=== PATIENT | female | born 1975 | race Caucasian/White ===

== ENCOUNTER 2020-02-01 06:45 | Outpatient (CLI) | payer OTHER, SELFPAY ==
--- NOTE | 2020-02-01 06:59 | USCV_ITS ---
Soniya Zhou Age: 44 Gender: F : 1975 Exam Date: 02/01/2020 07:07 Ordering Phys: Meredith MorganP SALES MGR Technologist: Geovanna Morales [place] [facility] [place]ication: edema HISTORY: Lower extremity edema. PROCEDURES: Venous duplex imaging was performed in bilateral lower extremities. Bilaterally, the common femoral, superficial femoral, profunda femoral, popliteal, posterior tibial, greater saphenous veins, and the peroneal trunk were identified and interrogated in the standard fashion. FINDINGS: Normal 2-D Doppler and augmentation and compressibility throughout the lower extremity venous structures. Additional imaging through the proximal calf veins also reveals no thrombus. Limited evaluation of the greater saphenous vein is patent with no thrombus. CONCLUSIONS No DVT bilateral lower extremities. Dr. Estella Turcios DO (Electronically Signed) Final Date: 01 February 2020 13:48 S
== END 2020-02-01 06:46 | disposition home or self-care (01) ==
PROVIDERS: PCP Nurse Practitioner Family; Visit Provider Nurse Practitioner Family
DX: R60.0 Localized edema (principal)
CPT/HCPCS: 93970

== ENCOUNTER 2020-06-14 15:45 | Outpatient (CLI) | payer OTHER, SELFPAY ==
[2020-06-14 17:41] LABS: Troponin T (5th) Once 8 ng/L (0-10)
[2020-06-14 18:00] LABS: NT Pro B Type Natriuretic Pept 339 pg/mL (0-125)
[2020-06-14 18:19] LABS: C Reactive Protein 14.5 mg/L (0.0-4.9)
== END 2020-06-14 15:46 | disposition home or self-care (01) ==
LOC: LAB 15:47
PROVIDERS: PCP Nurse Practitioner Family; Visit Provider Family Medicine
DX: R06.00 Dyspnea, unspecified (principal)
CPT/HCPCS: 83880; 84484; 86140

== ENCOUNTER → 2021-03-05 14:59 | Outpatient (BNVA) | payer OTHER, SELFPAY | PROVIDERS: PCP Nurse Practitioner Family; Visit Provider Nurse Practitioner Family | DX: Z20.822 Contact with and (suspected) exposure to COVID-19 (principal) | CPT/HCPCS: 87635 ==

== ENCOUNTER 2021-07-22 11:34 | Outpatient (CLI) | payer OTHER, SELFPAY ==
--- NOTE | 2021-07-22 11:51 | MM_ITS ---
WS: [id number] BILATERAL DIGITAL SCREENING MAMMOGRAPHY WITH CAD CLINICAL INFORMATION: SCREENING HISTORY: Screening mammogram. Bilateral breast soreness COMPARISON: TECHNIQUE: Bilateral CC and MLO views. FINDINGS: The breasts are composed of heterogeneous fibroglandular density tissue, which can limit the detectio n of small underlying mass lesions. No suspicious mass, asymmetry, calcifications, or architectural d istortion. No evidence of malignancy. MM/[id number] IMPRESSION: BI-RADS: 1-Negative FOLLOW UP: 1 Year Follow-up Recommend return to annual screening mammography.
== END 2021-07-22 11:35 | disposition home or self-care (01) ==
LOC: RADSHAW 11:41
PROVIDERS: PCP Nurse Practitioner Family; Visit Provider Nurse Practitioner Family
DX: Z12.31 Encounter for screening mammogram for malignant neoplasm of breast (principal)
CPT/HCPCS: 77067

== ENCOUNTER 2022-09-11 08:17 | Outpatient (CLI) | payer OTHER, SELFPAY ==
--- NOTE | 2022-09-11 08:26 | MM_ITS ---
WS: [id number] Bilateral screening 3D tomosynthesis digital mammogram, 09/11/2022 Clinical Data: SCREENING Comparison: 07/22/2021, 04/14/2019, 06/04/2017, 11/12/2015, 11/09/2014. Findings: The breast parenchymal pattern shows heterogeneous density. No spiculated masses or clustered calcifi cations are seen. There are no secondary signs of carcinoma. There are mole markers on both breasts. There are lymph nodes in both axilla. MM/[id number] Impression: 1. Negative bilateral mammogram unchanged. 2. Recommend annual screening mammograms. BIRADS: 1-Negative FOLLOW UP: 1 Year Follow-up The CAD finished cloth checker was used.
== END 2022-09-11 08:18 | disposition home or self-care (01) ==
LOC: RAD 08:20
PROVIDERS: PCP Nurse Practitioner Family; Visit Provider Nurse Practitioner Family
DX: Z12.31 Encounter for screening mammogram for malignant neoplasm of breast (principal)
CPT/HCPCS: 77063; 77067

== ENCOUNTER 2023-09-29 15:26 | Outpatient (CLI) | payer OTHER, SELFPAY ==
--- NOTE | 2023-09-29 15:34 | XRR_ITS ---
PROCEDURE INFORMATION: Exam: XR Chest Exam date and time: 09/29/2023 3:44 PM Age: 48 years old Clinical indication: Other: Localized edema TECHNIQUE: Imaging protocol: Radiologic exam of the chest. Views: 2 views. COMPARISON: CR XR chest 2V* [id number] 06/14/2020 2:39 PM FINDINGS: Lungs: No focal consolidation. Pleural spaces: No pleural effusion. No pneumothorax. Heart/Mediastinum: No cardiomegaly. Bones/joints: No acute findings. XR/XR chest 2V* [id number] IMPRESSION: No acute findings.
== END 2023-09-29 15:27 | disposition home or self-care (01) ==
LOC: RAD 15:29
PROVIDERS: PCP Nurse Practitioner Family; Visit Provider Nurse Practitioner Family
DX: R60.0 Localized edema (principal)
CPT/HCPCS: 71046

== ENCOUNTER 2024-03-07 07:50 | Outpatient (CLI) | payer OTHER, SELFPAY ==
--- NOTE | 2024-03-07 07:55 | MR_ITS ---
WS: [id number] MRI RIGHT WRIST WITHOUT CONTRAST. COMPARISON: Radiograph 02/01/2024 Multiplanar, multisequence imaging is performed without contrast. There is abnormal T2 signal in the lateral wrist at the level of the scaphoid and radial styloid. The re is increased T2 signal and fluid along the radial styloid and surrounding the abductor pollicis br brisa tendon and extensor pollicis brevis tendon. There does appear to be a split tear within these te ndons. On the axial imaging the increased signal is probably within both of these tendons along with surrounding edema and mild separation from the osseous structures. No complete tear. There is thicken ing of the tendon and edema from tendinopathy. There is loss of the normal cortex over the radial styloid suggesting impaction fracture this is also the site of the most edema. No scaphoid fracture is identified. Scapholunate interval and ligament are negative. TFCC appears int act with mild degeneration. The remaining tendons and ligaments are negative. No muscle atrophy. MR/MR wrist RT wo con* [id number] IMPRESSION: 1. Abnormal signal along the lateral wrist at the level of the radial styloid and scaphoid. Consistent with soft tissue injury and tendon injury. 2. Increased fluid consistent with tenosynovitis in the tendon sheath of the a bductor pollicis brevis and extensor pollicis brevis tendons. Split tears are a lso noted focally within these tendons at the level of the radial styloid. No f ull-thickness tear or retraction. 3. Focal cortical injury involving the radial styloid. Contusion type injury. No additional fractures.
--- NOTE | 2024-03-07 07:55 | MM_ITS ---
WS: [id number] SCREENING DIGITAL TOMOSYNTHESIS MAMMOGRAM WITH CAD HISTORY: SCREENING COMPARISON: 09/11/2022, 07/22/2021 Bilateral CC and MLO with tomosynthesis views submitted. Synthetic mammography reviewed. Computer aid ed detection analyzed. Breast composition: There are scattered areas of fibroglandular density. No suspicious masses, microc alcifications or architectural distortion. MM/[place] [id number] IMPRESSION: BI-RADS: 1-Negative FOLLOW UP: 1 Year Follow-up
== END 2024-03-07 07:51 | disposition home or self-care (01) ==
LOC: RAD 07:50
PROVIDERS: PCP Nurse Practitioner Family; Visit Provider Nurse Practitioner Family
DX: Z12.31 Encounter for screening mammogram for malignant neoplasm of breast (principal); R92.323 Mammographic fibroglandular density, bilateral breasts; M65.9 Synovitis and tenosynovitis, unspecified; S56.311A Strain of extensor or abductor muscles, fascia and tendons of right thumb at forearm level, initial encounter; M65.831 Other synovitis and tenosynovitis, right forearm
CPT/HCPCS: 73221; 77063; 77067

== ENCOUNTER → 2024-03-09 10:59 | Outpatient (BNVA) | payer OTHER, SELFPAY | PROVIDERS: PCP Nurse Practitioner Family; Visit Provider Nurse Practitioner | DX: M25.531 Pain in right wrist (principal) | CPT/HCPCS: 73110 ==

== ENCOUNTER 2024-03-09 14:59 | Outpatient (CLI) | payer OTHER, SELFPAY | END 2024-03-09 15:00 | disposition home or self-care (01) | LOC: SPT 15:00 | PROVIDERS: PCP Nurse Practitioner Family; Visit Provider Nurse Practitioner | DX: Z46.89 Encounter for fitting and adjustment of other specified devices (principal); M25.541 Pain in joints of right hand | CPT/HCPCS: 97760; L3809 ==

== ENCOUNTER 2024-04-12 10:25 | Day surgery (SDC) | payer OTHER, SELFPAY ==
[2024-04-12] VITALS (11 sets, daily range): BP systolic 96–112; BP diastolic 64–82; PULSE 57–100; RESP 10–18; TEMP 36.6–36.8; O2SAT 90–98; BMI 33.8
[2024-04-12] MEDS: acetaminophen 1,000 MG/100 ML PIGGYBACK 400 MG IV (11:39)
[2024-04-12] MEDS: CELEcoxib 200 mg Capsule 400 MG PO (11:42)
[2024-04-12] MEDS: gabapentin 300 mg Capsule PO (11:43)
[2024-04-12] MEDS: sodium chloride 0.9% 1,000 ML 30 ML IV (11:44)
[2024-04-12] MEDS: scopolamine 1.5 Patch 1 PATCH TRANSDERMA (11:49)
--- NOTE | 2024-04-12 12:00 | P.ANESASSM_ITS ---
Pre-Anesthetic Assessment Height/Weight: Height 5 ft 2 in Weight 185 lb Temp Pulse Resp BP Pulse Ox O2 Del Method 98.2 F 57 L 18 96/64 98 Room Air 04/12/24 11:11 04/12/24 11:11 04/12/24 11:11 04/12/24 11:11 04/12/24 11:11 04/12/24 11:19 Preop Diagnosis: de Quervain tendinitis Operation Date: 04/12/24 12:45 Proposed Procedures p Dequervain Release(Right) - Nikki Stokes MD Last intake: Intake Last Liquid Date 04/11/24 Last Liquid Time 20:00 Last Solid Date 04/11/24 Last Solid Time 20:00 Social No alcohol and No tobacco Exam alert, oriented x 3, clear to auscultation bilaterally and regular rate & rhythm Airway Submandibular: within normal limits Cervical ROM: within normal limits Mallampati: Class III Dentition: full Anesthetic Plan ASA status: 2 Anesthesia: General Other: No prior issues with anesthesia NPO since midnight History of GERD, controlled with pantoprazole Denies any cardiac or pulmonary issues METs greater than 4 Plan for general anesthesia with LMA Medications/Allergies Home Medications Medication Instructions Recorded Confirmed Last Taken Type pantoprazole 40 mg tablet,delayed 40 mg PO DAILY 03/05/21 04/11/24 04/11/24 His tory release thumb spica splint #1 ea 03/09/24 03/09/24 Unknown Rx Allergies Allergy/AdvReac Type Severity Reaction Status Date / Time No Known Allergies Allergy Unverified 03/23/24 09:25 Current Medications Generic Name Dose Route Start Last Admin Trade Name Mallika PRN Reason Stop Dose Admin Sodium Chloride 1,000 mls @ 30 mls/hr 04/12/24 11:00 04/12/24 11:44 Sodium Chloride 0.9% IV 04/13/24 10:59 30 mls/hr .Q24H ADRIAN Administration PFSH Anesthesia Medical History Contusion of right wrist De Quervain's tenosynovitis, right Social History Smoking and tobacco/nicotine status: never used tobacco/nicotine Data Anesthesia Cardiac Studies: No Data to Display
--- NOTE | 2024-04-12 12:07 | W.PM.OPSUD ---
Surgery/Procedure H&P Update DATE OF PROCEDURE: April 12, 2024 DATE H&P PERFORMED: 03/23/24 H&P UPDATE INFORMATION: I have reviewed H&P completed within last 30 days, I have examined patient prior to procedure, No changes to prior documentation and [place] [facility] [place] indicated PREOP DIAGNOSIS: de Quervain tendinitis PLANNED PROCEDURE: Operation Date: 04/12/24 12:45 Proposed Procedures p Dequervain Release(Right) - Nikki Stokes MD Related Problem List Diagnoses (1) De Quervain's tenosynovitis, right:
[2024-04-12] MEDS: ceFAZolin 2,000 mg SDV 2000 MG IVP (12:15)
[2024-04-12] MEDS: BUPivacaine 0.5% INJ 30 mL XX (12:44)
--- NOTE | 2024-04-12 13:38 | PM.OP ---
Operative Report Date of procedure: April 12, 2024 Surgeon: Nikki Stokes MD Procedure: The patient was brought to the operating theater. Anesthesia provided general anesthesia per LMA, ASA 2. The patient's right upper extremity was prepped and draped in usual fashion utilizing DuraPrep. It was draped free. Tourniquet was elevated to 250 mmHg for 24 minutes. Ancef preoperatively was given 2 g. The radial styloid was palpated and an incision was made horizontally approximately 1 cm proximal to the tip of the radial styloid. Dissection continued through the skin and dermis but following that soft tissue blunt dissection was accomplished to prevent injury to the superficial radial nerve branches in the area. We were able to retract these branches and the first dorsal compartment was visualized. The fibrous tissue over the first dorsal compartment was noted to be quite thickened and erythematous. This was released longitudinally using a combination of scalpel and scissors. We then confirmed that each of the tendons at been released. There was one abductor pollicis longus tendons and one extensor pollicis brevis tendon. All of these were released at least a centimeter distal to the radial styloid and proximally as well. There was no further compression across the tendons. The tendons were pulled up out of the tunnel for evaluation]. Following this, the wound was irrigated. Attention was then directed to closure. Closure was accomplished with 4-0 Monocryl with a simple suture in the subcutaneous tissues and subsequently a subcuticular suture was placed in a running fashion. We did inject the wound with half percent Marcaine plain for local anesthetic. This was followed by Dermabond and OpSite. We then placed soft roll and an Chon wrap. Tourniquet was released after 24 minutes. Patient was returned to Recovery Room in a satisfactory condition and will be discharged home to follow-up with me in the office. There were no specimens and no complications. Related Problem List Diagnoses (1) De Quervain's tenosynovitis, right:
[2024-04-12] MEDS: HYDROcodone-acetaminophen 5-325 mg Tablet 1 TAB PO (14:15)
--- NOTE | 2024-04-12 14:38 | ANE.PACU2 ---
Inpatient post-anesthesia follow up: Airway intact: Yes Vital signs: Temperature 97.8 F Pulse Rate 82 Respiratory Rate 18 Blood Pressure 112/82 Pulse Oximetry 93 Oxygen Delivery Me thod Room Air Oxygen Flow Rate Fraction of Inspir ed Oxygen Hydration adequate: Yes Nausea and vomiting: No Pain level: 1 Mental status: Baseline
== END 2024-04-12 14:38 | disposition home or self-care (01) ==
PROVIDERS: PCP Nurse Practitioner Family; Visit Provider Specialist
PROC: (CPT 25000; principal; 2024-04-12 12:45)
DX: M65.4 Radial styloid tenosynovitis [de Quervain] (principal); K21.9 Gastro-esophageal reflux disease without esophagitis
CPT/HCPCS: 25000; J0131; J0690; J1100; J2250; J2405; J2704; J3010; J3490; J7030

== ENCOUNTER 2025-04-06 09:06 | Outpatient (CLI) | payer OTHER, SELFPAY ==
--- NOTE | 2025-04-06 09:11 | MM_ITS ---
WS: [id number] BILATERAL SCREENING DIGITAL TOMOSYNTHESIS MAMMOGRAM WITH CAD HISTORY: SCREENING COMPARISON: 03/07/2024, 09/11/2022 Bilateral CC and MLO views with tomosynthesis and synthetic mammography submitted. Computer aided detection analyzed. Breast composition: There are scattered areas of fibroglandular density. No suspicious masses, microcalcifications or architectural distortion. MM/MM scr BI tomosynthesis [id number] IMPRESSION: BI-RADS: 2 - Benign. FOLLOW UP: 1 Year Follow-up
== END 2025-04-06 09:07 | disposition home or self-care (01) ==
LOC: RAD 09:08
PROVIDERS: PCP Nurse Practitioner Family; Visit Provider Nurse Practitioner Family
DX: Z12.31 Encounter for screening mammogram for malignant neoplasm of breast (principal); R92.323 Mammographic fibroglandular density, bilateral breasts
CPT/HCPCS: 77063; 77067